=== PATIENT | male | born 1995 | race Caucasian/White ===

== ENCOUNTER 2018-11-25 18:00 | Emergency (ER) | payer SELFPAY ==
--- NOTE | 2018-11-25 18:07 | EDM.PDOC ---
ED HPI GENERAL MEDICAL PROBLEM - General Chief Complaint: ENT Problem Stated Complaint: DENTAL COMPLAINT Time Seen by Provider: 11/25/18 18:07 Source of Information: Reports: Patient - History of Present Illness INITIAL COMMENTS - FREE TEXT/NARRATIVE: Patient is here for evaluation of dental pain to the left lower molar. He states that he was eating something soft approximately 2 days ago and felt his tooth break off. Has had worsened pain to that area since that time. Now feels that there is some swelling surrounding this. He does not note any draining. Denies fever or chills. Eating and drinking fluids adequately but has difficulty chewing. Patient reports that he has a long-standing history poor dentition and frequent fillings. Does have a dental appointment scheduled on the to have this tooth extracted. Patient also reports cold symptoms. He states that he's had sinus congestion and a cough. These have been going on approximately one week and are improving. It is coincidental but he is primarily here for the dental pain. Left Lower Tooth/Teeth Pain Score (Numeric/FACES): 2 - Related Data Allergies Allergy/AdvReac Type Severity Reaction Status Date / Time No Known Allergies Allergy Verified 11/25/18 18:08 Home Meds: Home Meds Amoxicillin/Potassium Clav [Augmentin 875-125 Tablet] 1 each PO BID #20 tablet 11/25/18 [Rx] ED ROS ENT - Review of Systems Review Of Systems: See Below Constitutional: Denies: Fever, Chills, Malaise, Weakness, Decreased Appetite HEENT: Reports: Dental Pain, Other (Broken tooth) Respiratory: Reports: Cough, Sputum. Denies: Shortness of Breath, Wheezing Cardiovascular: Reports: No Symptoms GI/Abdominal: Reports: No Symptoms Skin: Reports: No Symptoms Neurological: Reports: No Symptoms ED EXAM, ENT - Physical Exam Exam: See Below General Appearance: Alert, WD/WN, No Apparent Distress Ears: Normal External Exam, Normal Canal, Normal TMs Nose: Normal Inspection Mouth/Throat: Normal Inspection, Dental Pain, Gum Swelling, Other (Tooth #17 is broken off with surrounding gingival swelling. Some purulent drainage from around the tooth.) Head: Atraumatic, Normocephalic Neck: Normal Inspection, Supple, Non-Tender. No: Lymphadenopathy (L), Lymphadenopathy (R) Respiratory/Chest: No Respiratory Distress, Lungs Clear, Normal Breath Sounds, No Accessory Muscle Use, Chest Non-Tender Cardiovascular: Normal Peripheral Pulses, Regular Rate, Rhythm, No Murmur Neurological: Alert, Oriented Psychiatric: Normal Affect, Normal Mood Skin: Warm, Dry, Intact Course - Vital Signs Last Recorded V/S: Last Vital Signs Temp 99.5 F 11/25/18 18:11 Pulse 77 11/25/18 18:11 Resp 20 11/25/18 18:11 BP 149/87 H 11/25/18 18:11 Pulse Ox 100 11/25/18 18:11 - Re-Assessments/Exams Free Text/Narrative Re-Assessment/Exam: Broken tooth with associated infection to molar #17. Infection will be treated with Augmentin 10 days. Recommended probiotic with this. Tylenol ibuprofen as needed for the pain. Also recommended dental wax or topical Orajel. Patient has an appointment scheduled for extraction on 12/04/2018 and I strongly advised him to make sure that he keeps this, even if the pain improves. Viral URI symptoms mild and improving. Reassured patient that these will continue to resolve. Continue with supportive care rest/fluids. He will follow -up in the clinic if symptoms worsen or persist. 11/25/18 18:39 Departure - Departure Time of Disposition: 18:32 Disposition: Home, Self-Care 01 Condition: Good Clinical Impression: Dental infection, Viral URI, Dental caries - Discharge Information Prescriptions: Amoxicillin/Potassium Clav [Augmentin 875-125 Tablet] 1 each PO BID #20 tablet Instructions: Dental Abscess, [id number] Referrals: PCP,None [Primary Care Provider] - Forms: ED Department Discharge Additional Instructions: You were evaluated in the ED today for dental infection. This will be treated with Augmentin antibiotic, I recommend you take a daily probiotic with this. Continue Tylenol or ibuprofen as needed for pain. Dental wax or topical Orajel may help as well. Follow-up with your dentist as scheduled. Return to the ED for any new or worsening symptoms.
== END 2018-11-25 18:45 | disposition home or self-care (01) ==
LOC: JD.ED 18:00
DX: K04.7 Periapical abscess without sinus (principal); J06.9 Acute upper respiratory infection, unspecified
CPT/HCPCS: 99283

== ENCOUNTER 2019-03-14 18:15 | Emergency (ER) | payer SELFPAY ==
--- NOTE | 2019-03-14 19:13 | EDM.PDOC ---
ED HPI GENERAL MEDICAL PROBLEM - General Chief Complaint: General Stated Complaint: TOOTH PAIN Time Seen by Provider: 03/14/19 18:34 Source of Information: Reports: Patient, RN Notes Reviewed History Limitations: Reports: No Limitations - History of Present Illness INITIAL COMMENTS - FREE TEXT/NARRATIVE: Patient is a 23-year-old male who presents to the ED for the evaluation of dental pain. The patient states that this is the same tooth that was bothersome a few months ago. This is located in the left lower jaw. He was to get the tooth extracted, however he could not pay for it as he lost his job and his insurance. So he never actually got this taken care of. He denies any fevers or chills at this time. He now notes that he has been having some issues with this tooth for the past couple weeks however and he has noticed some swelling in other teeth that are becoming tender. He notes that his teeth are in poor repair, and that he has multiple dental issues. He also is a current every day smoker. Treatments LAB COURIER: Reports: Other (see below) Other Treatments LAB COURIER: Motrin 800 mg at 1700 Left Tooth/Teeth Pain Score (Numeric/FACES): 2 - Related Data Allergies Allergy/AdvReac Type Severity Reaction Status Date / Time No Known Allergies Allergy Verified 03/14/19 18:19 Home Meds: Home Meds Amoxicillin/Clavulanate K [Augmentin 875-125 MG] 1 tab PO BID #14 tablet [Rx] Fluconazole [Diflucan] 200 mg PO BID #14 tablet 03/14/19 [Rx] Ibuprofen [Ibu] 800 mg PO Q6H #28 tablet 03/14/19 [Rx] Past Medical History - Past Surgical History HEENT Surgical History: Reports: Oral Surgery Social & Family History - Tobacco Use Smoking Status *Q: Current Every Day Smoker Years of Tobacco use: 5 Packs/Tins Daily: 0.5 - Caffeine Use Caffeine Use: Reports: Energy Drinks - Recreational Drug Use Recreational Drug Use: No ED ROS GENERAL - Review of Systems Review Of Systems: See Below Constitutional: Reports: No Symptoms HEENT: Reports: Dental Pain. Denies: Throat Pain, Throat Swelling Respiratory: Reports: No Symptoms Cardiovascular: Reports: No Symptoms Endocrine: Reports: No Symptoms GI/Abdominal: Reports: No Symptoms : Reports: No Symptoms Musculoskeletal: Reports: No Symptoms Skin: Reports: No Symptoms Neurological: Reports: No Symptoms Psychiatric: Reports: No Symptoms Hematologic/Lymphatic: Reports: No Symptoms Immunologic: Reports: No Symptoms ED EXAM, GENERAL - Physical Exam Exam: See Below Exam Limited By: No Limitations General Appearance: Alert, WD/WN, No Apparent Distress Throat/Mouth: Normal Inspection, Normal Oropharynx, No Airway Compromise, Other (Dentition in very poor repair, his left lower molar has a cavity, tooth just anterior to that also has a cavity. He has multiple fillings in his teeth, with also multiple cavities on the upper molars on the left and the right side of his mouth. His tongue has some whitish patches that is consistent with oral thrush.) Head: Atraumatic, Normocephalic Neck: Normal Inspection Respiratory/Chest: No Respiratory Distress, Lungs Clear, Normal Breath Sounds, No Accessory Muscle Use, Chest Non-Tender Cardiovascular: Normal Peripheral Pulses, Regular Rate, Rhythm, No Murmur Extremities: Normal Inspection, Normal Capillary Refill Neurological: Alert, Oriented, Normal Cognition, No Motor/Sensory Deficits Psychiatric: Normal Affect, Normal Mood Skin Exam: Warm, Dry, Intact, Normal Color, No Rash Course - Vital Signs Last Recorded V/S: Last Vital Signs Temp 97.0 F 03/14/19 18:20 Pulse 90 03/14/19 18:20 Resp 17 03/14/19 18:20 BP 140/96 H 03/14/19 18:20 Pulse Ox 100 03/14/19 18:20 - Re-Assessments/Exams Free Text/Narrative Re-Assessment/Exam: 03/14/19 19:16 Patient presents to the ED for evaluation of dental pain. His teeth are in very poor repair, and he is aware of this. I did provide him with a prescription for Augmentin, fluconazole, and 800 mg ibuprofen tablets per his request. I have directed him on how to take these and what to expect with this. I did also discuss with him the use of care chronic credit card to be able to afford dental care. He was interested in this and will look into this further. Departure - Departure Time of Disposition: 19:09 Disposition: Home, Self-Care 01 Condition: Fair Clinical Impression: Dental caries, Dental abscess, Oral thrush - Discharge Information *PRESCRIPTION DRUG MONITORING PROGRAM REVIEWED*: No *COPY OF PRESCRIPTION DRUG MONITORING REPORT IN PATIENT MERRITT: No Prescriptions: Amoxicillin/Clavulanate K [Augmentin 875-125 MG] 1 tab PO BID #14 tablet Fluconazole [Diflucan] 200 mg PO BID #14 tablet Ibuprofen [Ibu] 800 mg PO Q6H #28 tablet Instructions: Dental Abscess, [id number], Diet and Dental Disease Referrals: PCP,None [Primary Care Provider] - Forms: ED Department Discharge Additional Instructions: You have been evaluated in the ED for your dental pain. You have been provided with a script for Augmentin. This was electronically sent to the [place] [facility] located in the [place] Please take this medication as directed. (1 tab twice daily for 7 days or until gone). You have been provided with a prescription for 800 mg ibuprofen tablets, please take one tablet every 6 hours as needed for pain. Do not exceed 4 doses in 24 hour time period. You have been provided with a prescription for oral fluconazole for your thrush. Please take one tab once daily for 14 days. Recommend that you start taking a probiotic as the Augmentin can cause some diarrhea. You may use hot pack/ ice packs to the affected area as tolerated in 15-20 minute intervals. You will ultimately need to find a dentist to provide definitive management of your dental pain. If you are having issues trying to afford your dental care, suggest that you google [employer], this is a healthcare credit card that provides you a way to pay the dentists and allows you to take 6 months to pay back with 0% interest. Please return to the ED if your symptoms change or worsen.
== END 2019-03-14 19:29 | disposition home or self-care (01) ==
LOC: JD.ED 18:15
DX: K04.7 Periapical abscess without sinus (principal); B37.0 Candidal stomatitis; F17.210 Nicotine dependence, cigarettes, uncomplicated
CPT/HCPCS: 99282; 99283

== ENCOUNTER 2023-04-27 23:54 | Emergency (ER) | payer BC | END 2023-04-28 01:00 | disposition home or self-care (01) | LOC: JD.ED 23:54 | DX: K08.89 Other specified disorders of teeth and supporting structures (principal); K00.7 Teething syndrome; E66.9 Obesity, unspecified; Z68.42 Body mass index [BMI] 45.0-49.9, adult; Z72.0 Tobacco use | CPT/HCPCS: 99283 ==